=== PATIENT | male | born 1995 | race Caucasian/White ===

== ENCOUNTER 2017-07-29 17:41 | Emergency (ER) | payer OTHER ==
[~2017-07-29] VITALS: Ht 180.3 cm; Wt 83.9 kg
--- OUTSIDE RECORDS SUMMARY | 2017-07-29 17:46 | XMS | Clinical Summary ---
Demographics + + + | Address | [address] | | | [place] [address] | + + + | Home Phone | | + + + | Preferred Language | Unknown | + + + | Marital Status | Single | + + + | Islam Affiliation | Unknown | + + + | Race | Unknown | + + + | Ethnic Group | Unknown | + + + Author + + + | Author | [facility] | | | and [place] | + + + | Organization | [facility] | | | and [place] | + + + | Address | Unknown | + + + | Phone | Unavailable | + + + Support + + + + + | Name | Relationship | Address | Phone | + + + + + | Cuong Britt | ECON | [address] | | | | | [place] [address] | | + + + + + | Avril Muniz | ECON | [address] | | | | | [place] [address] | | + + + + + Care Team Providers + +------+ + | Care Foreign Student Adviser Teacher Name | Role | Phone | + +------+ + | Eloise Cummings NP | PP | Unavailable | + +------+ + Allergies + + + + + + | Active Allergy | Reactions | Severity | Noted | Comments | | | | | Date | | + + + + + + | Codeine | Hives | Medium | 01/08/20 | | | | | | 14 | | + + + + + + Current Medications + + +-------+---------+------+------+-------+ | Prescription | Sig. | Disp. | Refills | Star | End | Statu | | | | | | t | Date | s | | | | | | Date | | | + + +-------+---------+------+------+-------+ | ALBUTEROL SULFATE | Inhale into the | | | | | Activ | | HFA IN | lungs. | | | | | e | + + +-------+---------+------+------+-------+ Active Problems Not on file Social History + +--------+ +--------+------+ | Tobacco Use | Types | Packs/Day | Years | Date | | | | | Used | | + +--------+ +--------+------+ | Current Every Day | Cigars | | | | | Smoker | | | | | + +--------+ +--------+------+ + +---+---+---+ | Smokeless Tobacco: | | | | | Never Used | | | | + +---+---+---+ + + +---------+ + | Alcohol Use | Drinks/We | oz/Week | Comments | | | ek | | | + + +---------+ + | No | | | | + + +---------+ + + + + | Sex Assigned at | Date Recorded | | | | + + + | Not on file | | + + + Last Filed Vital Signs + + + + | Vital Sign | Reading | Time Taken | + + + + | Blood Pressure | 134/70 | 01/07/2014905 PDT | + + + + | Pulse | 71 | 01/07/2014905 PDT | + + + + | Temperature | 36.8 C (98.3 F) | 01/07/2014905 PDT | + + + + | Respiratory Rate | 13 | 01/07/2014905 PDT | + + + + | Oxygen Saturation | 98% | 01/07/2014905 PDT | + + + + | Inhaled Oxygen | - | - | | Concentration | | | + + + + | Weight | 115 kg (253 lb 8.5 | 01/07/2014905 PDT | | | oz) | | + + + + | Height | 177.8 cm (5' 10") | 01/07/2014905 PDT | + + + + | Body Mass Index | 36.38 | 01/07/2014905 PDT | + + + + Plan of Treatment + + + + + | Health Maintenance | Due Date | Last Done | Comments | + + + + + | Vaccine: | | | | | Dtap/Tdap/Td (1 - | 5 | | | | Tdap) | | | | + + + + + | Vaccine: | | | | | Pneumococcal 19-64 | 5 | | | | (PPSV23 only) Medium | | | | | Risk (1 of 1 - | | | | | PPSV23) | | | | + + + + + | Vaccine: Influenza | | | | | (Season Ended) | 8 | | | + + + + + Results Not on filefrom Last 3 Months Insurance + +--------+ +--------+ +---------+ | Payer | Benefi | Subscriber | Type | Phone | Address | | | t Plan | ID | | | | | | / | | | | | | | Group | | | | | + +--------+ +--------+ +---------+ | [place]ICA[place] | MEDICA | xxxxxxxx | Medica | [phone] | | | [place] | | id | [id number] | | | | PLUS | | | | | + +--------+ +--------+ +---------+ | [employer] | MODA | xxxxxxxx | Medica | [phone] | | MEDICAID HMO | HEALTH | | id | [id number] | | | | MD[place] | | | | | | | [place] | | | | | + +--------+ +--------+ +---------+ + +--------+ +--------+ + + | Guarantor Name | Accoun | Relation to | Date | Phone | Billing Address | | | t Type | Patient | of | | | | | | | | | | + +--------+ +--------+ + + | TONO MUNIZ | Person | Self [birth year] | Home: | [address] | | [place] | al/Fam | | 1995 | +- | [place] [address] | | | darian | | | [phone] | | + +--------+ +--------+ + + | ALEE MUNIZ | Person | Mother | [birth year] | Home: | [address] | | | al/Fam | | 1890 | +- | [place] [address] | | | darian | | | [phone] | | + +--------+ +--------+ + +
--- OUTSIDE RECORDS SUMMARY | 2017-07-29 17:46 | XMS | Clinical Summary ---
Demographics + + + | Address | [address] | | | [place] [address] | + + + | Home Phone | | + + + | Preferred Language | Unknown | + + + | Marital Status | Single | + + + | Church Affiliation | Unknown | + + + | Race | Unknown | + + + | Ethnic Group | Unknown | + + + Author + + + | Author | [facility] | | | and [place] | + + + | Organization | [facility] | | | and [place] | + + + | Address | Unknown | + + + | Phone | Unavailable | + + + Support + + + + + | Name | Relationship | Address | Phone | + + + + + | Cuong Britt | ECON | [address] | | | | | [place] [address] | | + + + + + | Avril Muniz | ECON | [address] | | | | | [place] [address] | | + + + + + Care Team Providers + +------+ + | Care Logistics Engineer Name | Role | Phone | + [...] | 1995 | +- | [place] [address] | | | darian | | | [phone] | | + +--------+ +--------+ + + | ALEE MUNIZ | Person | Mother | [birth year] | Home: | [address] | | | al/Fam | | 1890 | +- | [place] [address] | | | darian | | | [phone] | | + +--------+ +--------+ + +
[2017-07-29] MEDS ORDERED: IBUPROFEN600 MG PO (18:16)
[2017-07-29] MEDS ORDERED: CYCLOBENZAPRINE5 MG PO (18:16)
== END 2017-07-29 18:49 | disposition home or self-care (01) ==
LOC: ED 17:41
DX: R07.89 Other chest pain (principal); F17.200 Nicotine dependence, unspecified, uncomplicated; Z88.5 Allergy status to narcotic agent
CPT/HCPCS: 71046; 96372; 99283; J1885

== ENCOUNTER 2017-12-04 23:52 | Emergency (ER) | payer OTHER ==
[~2017-12-04] VITALS: Ht 180.3 cm; Wt 97.5 kg
[~2017-12-04 23:52] MED LIST: CYCLOBENZAPRINE5 MG PO; IBUPROFEN600 MG PO; VENTOLIN HFA18 GM INH
[2017-12-05] MEDS ORDERED: NORCO 5-325 TA1 EACH PO ×2 (09:19)
[2017-12-05] MEDS ORDERED: ADDERALL 15 MG15 MG PO ×2 (09:20)
== END 2017-12-05 03:36 | disposition home or self-care (01) ==
LOC: ED 23:52
DX: M65.9 Synovitis and tenosynovitis, unspecified (principal); S61.231D Puncture wound without foreign body of left index finger without damage to nail, subsequent encounter; J45.909 Unspecified asthma, uncomplicated; F17.200 Nicotine dependence, unspecified, uncomplicated; Z88.5 Allergy status to narcotic agent
CPT/HCPCS: 85025; 90471; 90715; 96365; 96366; 96375; 99283; J1170; J1200; J2405; J3370; J7030; J7060

== ENCOUNTER 2017-12-05 08:53 | Day surgery (SDC) | payer OTHER ==
[~2017-12-05] VITALS: Ht 180.3 cm; Wt 90.3 kg
[2017-12-05] MEDS ORDERED: NORCO 5-325 TA1 EACH PO ×2 (09:19)
[2017-12-05] MEDS ORDERED: ADDERALL 15 MG15 MG PO ×2 (09:20)
--- NOTE | 2017-12-05 13:01 | NUR ---
12/05/17 Cindi1 Ann [place] 1249 PT ARRIVED TO PACU RESP EVEN AND UNLABROED, ON 6L VIA MASK. PT NONAROUSABLE TO STIMULI. 1255 PT WOKE TO TACTILE STIMULI AND DENIES PAIN. PT UNABLE TO OPEN EYES, PT RIGHT BACK TO SLEEP.
--- NOTE | 2017-12-05 13:33 | NUR ---
ICED WATER GIVEN. PT TAKES SIPS OF WATER AND TOLERATES THAT WELL. CALL LIGHT W/IN REACH.
--- NOTE | 2017-12-05 14:18 | NUR ---
PATIENT AWAKE IN BED, USING CELL PHONE. PATIENT DENIES PAIN OR NAUSEA. PATIENT REFUSES ANY FOOD EXCEPT FOR YOGURT, INDICATES THAT "NOTHING AGREES WITH ME SINCE I HAD PANCREATITIS." PATIENT DENIES URGE TO VOID.
--- NOTE | 2017-12-05 15:48 | NUR ---
PT UP TO BR W/RN STANDBY. PT AMBULATES WELL AND DENIES DIZZINESS. PT VOIDS AND REQ DC HOME. PT IS TEXTING HIS RIDE. DC INSTRUCTIONS GIVEN AND PT VERBALIZES UNDERSTANDING.
--- NOTE | 2017-12-05 16:07 | NUR ---
PT DRESSES SELF AND TRANSFERS SELF TO AND THEN PERSONAL VEHICLE AND MANAGES THAT ALL WELL.
--- NOTE | 2017-12-06 09:30 | NUR ---
PT SITTING UPRIGHT IN BED, HOLDING FINGER AND GRIMACING IN PAIN. ALL HE WOULD SAY IS IT REALLY HURTS AND WASN'T HARDLY AWARE OF MY PRESENCE. PASSED PT'S PAIN ISSUE TO RN, WILL FOLLOW NEEDED
--- NOTE | 2017-12-07 07:04 | OR ---
[facility] [address], [place] [address] Signed DATE OF OPERATION: 12/05/2017 SURGEON: Cesar Mcdowell MD PREOPERATIVE DIAGNOSIS: Flexor tenosynovitis with abscess in the distal pulp of the left index finger. POSTOPERATIVE DIAGNOSIS: Flexor tenosynovitis with abscess in the distal pulp of the left index finger. PROCEDURE: Incision and drainage. ANESTHESIA: General. SPECIMENS AND COMPLICATIONS: There were no complications. We did take robotic and anaerobic cultures. WHAT WAS DONE: The patient was taken to the operating room. After anesthesia was induced and airway secured, the left upper extremity was positioned, prepped and draped in a routine sterile fashion. We elevated the hand for about 2 minutes and pneumatic tourniquet about the upper arm was inflated to 250 mmHg pressure. A wound. We then made a modified Samina incision over the middle phalanx of the left index finger. Skin was divided sharply. Subcutaneous tissue was bluntly spread. A curved mosquito was then used to tunnel slightly distally where we entered a large abscess over the distal phalanx. This was evacuated with blunt dissection and copious irrigation. We then made a longitudinal split in the flexor tendon sheath and a moderate amount of purulent material came out. We then made a 2nd incision proximally near the MCP flexion crease over the A1 godfrey. Skin was divided sharply. Subcutaneous tissue was bluntly spread. A self-retaining retractor was placed and we opened the flexor tendon sheath over the A1 godfrey and again a moderate amount of the yellowish murky fluid emerged. We then placed an 18-gauge Angiocath in the flexor tendon sheath and copiously irrigated. Both proximally and distally until there was no more purulent or cloudy material. Both wounds were then gently irrigated themselves and closed with interrupted sutures of 4-0 nylon. A sterile dressing was applied. The patient was awakened and taken to the recovery room, where he arrived in stable condition. Counts were correct and antibiotic protocols were followed. Electronically Signed By: CESAR MCDOWELL MD 12/07/17 0704 PATIENT NAME: VENKATESH CARRERA OPERATIVE REPORT DATE OF : 89 REPORT #: [id number] PHYSICIAN: CESAR MCDOWELL MD PCP: JEREMI COBIAN PAC REPORT IS CONFIDENTIAL AND NOT TO BE RELEASED WITHOUT AUTHORIZATION [address] [address] Signed Cesar Mcdowell MD WFB/MODL /[id number] Copies: ~ Electronically Signed By: CESAR MCDOWELL MD 12/07/17 0704 PATIENT NAME: VENKATESH CARRERA OPERATIVE REPORT DATE OF : [birth year] REPORT #: [id number] PHYSICIAN: CESAR MCDOWELL MD PCP: JEREMI OCBIAN PAC REPORT IS CONFIDENTIAL AND NOT TO BE RELEASED WITHOUT AUTHORIZATION
== END 2017-12-05 16:05 | disposition home or self-care (01) ==
LOC: DS 08:53 → OPS 08:53 → DS 11:30 → OPS 16:05
PROVIDERS: Orthopaedic Surgery
PROC: 0L980ZZ Drainage of Left Hand Tendon, Open Approach (ICD-10-PCS; principal; 2017-12-05 11:30)
DX: M65.842 Other synovitis and tenosynovitis, left hand (principal); L02.512 Cutaneous abscess of left hand
CPT/HCPCS: 00400; 64417; 76942; J0690; J1100; J2250; J2405; J2704; J2765; J2795; J3010; J7120

== ENCOUNTER 2020-10-08 20:33 | Emergency (ER) | payer OTHER ==
[~2020-10-08] VITALS: Ht 180.3 cm; Wt 90.3 kg
[~2020-10-08 20:33] MED LIST changes: +ADDERALL 15 MG15 MG PO; +NORCO 5-325 TA1 EACH PO
[2020-10-08] MEDS ORDERED: PROVENTIL HFA6.7 GM INH (22:35)
== END 2020-10-08 22:45 | disposition home or self-care (01) ==
LOC: ED 20:33
DX: R05 Cough (principal); F17.200 Nicotine dependence, unspecified, uncomplicated; Z88.5 Allergy status to narcotic agent
CPT/HCPCS: 71046; 99283-25

== ENCOUNTER 2024-02-03 08:04 | Emergency (ER) | payer OTHER ==
[~2024-02-03] VITALS: Ht 180.3 cm; Wt 105.1 kg
[~2024-02-03 08:04] MED LIST changes: +PROVENTIL HFA6.7 GM INH
[2024-02-03 09:25] LABS: INFLUENZA B NAA NEGATIVE (NEGATIVE); RESPIRATORY SYNCYTIAL VIR NAA NEGATIVE (NEGATIVE)
[2024-02-03] MEDS ORDERED: VENTOLIN HFA18 GM INH (09:27)
[2024-02-03 09:33] VITALS: BP 132/77
== END 2024-02-03 09:33 | disposition home or self-care (01) ==
LOC: ED 08:04
PROVIDERS: Emergency Medicine
DX: J06.9 Acute upper respiratory infection, unspecified (principal); J45.909 Unspecified asthma, uncomplicated; F17.200 Nicotine dependence, unspecified, uncomplicated; Z88.5 Allergy status to narcotic agent
CPT/HCPCS: 71046; 87502; 99283-25; U0002

== ENCOUNTER 2024-04-05 22:08 | Emergency (ER) | payer OTHER ==
[~2024-04-05] VITALS: Ht 180.3 cm; Wt 100.7 kg
[2024-04-05] MEDS ORDERED: AMOXICILLIN/CLAVULANATE K 875 MG HOME.PACK PO ONE (23:00)
[2024-04-05] MEDS ORDERED: IBUPROFEN 800 MG TAB PO ONE (23:00)
[2024-04-05] MEDS ORDERED: AMOX TR-K CLV1 EAC1 PO (23:07)
[2024-04-05 23:17] VITALS: BP 146/75
== END 2024-04-05 23:17 | disposition home or self-care (01) ==
LOC: ED 22:08
DX: K02.7 Dental root caries (principal); K04.7 Periapical abscess without sinus; F17.200 Nicotine dependence, unspecified, uncomplicated; Z88.5 Allergy status to narcotic agent
CPT/HCPCS: 99282; A9270

== ENCOUNTER 2024-04-13 10:30 | Emergency (ER) | payer OTHER ==
[~2024-04-13] VITALS: Ht 180.3 cm; Wt 99.8 kg
[~2024-04-13 10:30] MED LIST changes: +AMOX TR-K CLV1 EAC1 PO
--- OUTSIDE RECORDS SUMMARY | 2024-04-13 10:37 | XMS ---
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 Events No recent Security Events currently on file CRITERIA MET - [facility] - 2 Visits in 30 Days CARE PROVIDERS JAZ CORRAL Community Health Worker 01/19/2022-Current PHONE: [phone] JEREMI COBIAN 12/05/2017-Current PHONE: [phone] -[facility]+ Dentist: Wall Washer [facility] PHONE: [phone] -Bhavya- Dentist: Wall Was[facility] PHONE: [phone] -David- Dentist: Wall Was[facility] PHONE: [phone] [facility]Center: [facility] FAMILY PHONE: [phone] Martínez has no Care Guidelines for this patient. [place] VISIT COUNT (12 MO.) [address] [facility] [address] [place] TOTAL 3 NOTE: Visits indicate total known visits. ED/UCC VISIT TRACKING (12 MO.) 04/13/2024 10:31 [facility] [place] TYPE: Emergency COMPLAINT: - TOOTH PAIN 04/05/2024 22:08 [facility] [place] TYPE: Emergency COMPLAINT: - MOUTH PAIN DIAGNOSES: - Allergy status to narcotic agent - Dental root caries - Nicotine dependence, unspecified, uncomplicated - Other specified disorders of teeth and supporting structures - Periapical abscess without sinus 02/03/2024 08:04 [facility] [place] TYPE: Emergency COMPLAINT: - COLD SYMPTOMS DIAGNOSES: - Acute upper respiratory infection, unspecified - Allergy status to narcotic agent - Cough, unspecified - Nicotine dependence, unspecified, uncomplicated - Unspecified asthma, uncomplicated INPATIENT VISIT TRACKING (12 MO.) No inpatient visits to display in this time frame [email or web address]
[2024-04-13] MEDS ORDERED: PENICILLIN V POTASSIUM 500 MG TAB PO ONE (11:15)
[2024-04-13] MEDS ORDERED: VENTOLIN HFA18 GM INH (11:18)
[2024-04-13] MEDS ORDERED: PENICILLIN V P500 MG PO (11:22)
[2024-04-13] MEDS ORDERED: HYDROCODON-ACE1 EA11 PO (11:25)
[2024-04-13 11:34] VITALS: BP 161/95
== END 2024-04-13 11:34 | disposition home or self-care (01) ==
LOC: ED 10:30
DX: K08.89 Other specified disorders of teeth and supporting structures (principal); J45.909 Unspecified asthma, uncomplicated; F17.200 Nicotine dependence, unspecified, uncomplicated; Z88.5 Allergy status to narcotic agent; Z79.899 Other long term (current) drug therapy
CPT/HCPCS: 99282

== ENCOUNTER 2024-04-14 05:43 | Emergency (ER) | payer OTHER ==
[~2024-04-14] VITALS: Ht 180.3 cm; Wt 100.2 kg
[~2024-04-14 05:43] MED LIST changes: +HYDROCODON-ACE1 EA11 PO; +PENICILLIN V P500 MG PO
--- OUTSIDE RECORDS SUMMARY | 2024-04-14 05:50 | XMS ---
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 - 2 Visits in 30 Days CARE PROVIDERS JAZ CORRAL Community Health Worker 01/19/2022-Current PHONE: [phone] JEREMI COBIAN 12/05/2017-Current PHONE: [phone] -[facility]+ Dentist: Rfid Engineer [facility] PHONE: [phone] -Bhavya- Dentist: Rfid Engineer [facility] PHONE: [phone] -David- Dentist: Rfid Engineer [facility] PHONE: [phone] [facility]/Center: [facility] FAMILY PHONE: [phone] Martínez has no Care Guidelines for this patient. [place] VISIT COUNT (12 MO.) [address] [facility] [address] . TOTAL 4 NOTE: Visits indicate total known visits. ED/UCC VISIT TRACKING (12 MO.) 04/14/2024 05:44 [facility] [place] TYPE: Emergency COMPLAINT: - TOOTH PAIN 04/13/2024 10:31 [facility] [place] TYPE: Emergency [...] visits to display in this time frame [id number]
[2024-04-14 06:14] VITALS: BP 148/98
== END 2024-04-14 06:13 | disposition home or self-care (01) ==
LOC: ED 05:43
DX: K02.9 Dental caries, unspecified (principal); J45.909 Unspecified asthma, uncomplicated; F17.200 Nicotine dependence, unspecified, uncomplicated; Z88.5 Allergy status to narcotic agent; Z79.899 Other long term (current) drug therapy
CPT/HCPCS: 99282

== ENCOUNTER 2024-05-02 21:40 | Emergency (ER) | payer OTHER ==
[~2024-05-02] VITALS: Ht 180.3 cm; Wt 81.6 kg
--- OUTSIDE RECORDS SUMMARY | 2024-05-02 21:46 | XMS ---
PreManage Notification: VENKATESH CARRERA Security Senior Bookkeeper Events No recent Security Events currently on file CRITERIA MET - [facility] - 2 Visits in 30 Days CARE PROVIDERS JAZ CORRAL Community Health Worker 01/19/2022-Current PHONE: [phone] JEREMI COBIAN 12/05/2017-Current PHONE: [phone] -[facility]+ Dentist: Dispatcher Radioactive Waste Disposal [facility] PHONE: [phone] -Bhavya- Dentist: Dispatcher Radioactive Waste Disposal [facility] PHONE: [phone] -David- Dentist: Dispatcher Radioactive Waste Disposal [facility] PHONE: [phone] [facility]/Center: [facility] FAMILY PHONE: [phone] Martínez has no Care Guidelines for this patient. [place] VISIT COUNT (12 MO.) [address] [facility] [address] [place] TOTAL 5 NOTE: Visits indicate total known visits. ED/UCC VISIT TRACKING (12 MO.) 05/02/2024 21:40 [facility] [place] TYPE: Emergency COMPLAINT: - DENTAL PAIN 04/14/2024 05:44 [facility] [place] TYPE: Emergency COMPLAINT: - TOOTH PAIN DIAGNOSES: - Allergy status to narcotic agent - Dental caries, unspecified - Nicotine dependence, unspecified, uncomplicated - Other termite treater helper (current) drug therapy - Other specified disorders of teeth and supporting structures - Unspecified asthma, uncomplicated 04/13/2024 10:31 [facility] [place] TYPE: Emergency COMPLAINT: - TOOTH PAIN DIAGNOSES: - Allergy status to narcotic agent - Nicotine dependence, unspecified, uncomplicated - Other assisted (current) drug therapy - Other specified disorders of teeth and supporting structures - Unspecified asthma, uncomplicated 04/05/2024 22:08 [facility] [place] TYPE: Emergency [...] visits to display in this time frame [email or web address]
[2024-05-02] MEDS ORDERED: CEPHALEXIN500 M1 PO (22:16)
[2024-05-02 22:30] VITALS: BP 133/76
[2024-05-02] MEDS ORDERED: CEPHALEXIN MONOHYDRATE 500 MG HOME.PACK PO ONE (22:30)
[2024-05-02] MEDS ORDERED: TRAMADOL HCL 50 MG HOME.PACK PO ONE (22:30)
== END 2024-05-02 22:30 | disposition home or self-care (01) ==
LOC: ED 21:40
DX: K02.9 Dental caries, unspecified (principal); K04.7 Periapical abscess without sinus; J45.909 Unspecified asthma, uncomplicated; F17.200 Nicotine dependence, unspecified, uncomplicated; Z88.5 Allergy status to narcotic agent; Z79.899 Other long term (current) drug therapy
CPT/HCPCS: 99282; A9270

== ENCOUNTER 2024-06-08 17:29 | Emergency (ER) | payer OTHER ==
[~2024-06-08] VITALS: Ht 180.3 cm; Wt 102.5 kg
[~2024-06-08 17:29] MED LIST changes: +CEPHALEXIN500 M1 PO
[2024-06-08 17:53] LABS: BILIRUBIN, URINE NEGATIVE (negative); BLOOD/HGB, URINE LARGE (Negative); KETONE, URINE NEGATIVE (Negative); LEUK ESTERASE, URINE MODERATE (negative); NITRITE, URINE POSITIVE (negative)
[2024-06-08 17:58] LABS: EPITHELIAL CELLS, URINE SQUAMOUS 1+ /lpf (0-1+)
[2024-06-08 17:59] LABS: CRYSTALS, URINE NONE SEEN (0-1+); WHITE BLOOD CELLS, URINE 41-50 /HPF (0-5)
[2024-06-08 18:00] LABS: BACTERIA, URINE 2+ /hpf (negative); CASTS, URINE NONE SEEN \\lpf; COLLECTION TYPE, URINE CLEAN CATCH; REFLEX CULTURE, URINE Yes (No)
[2024-06-08] MEDS ORDERED: BACTRIM DS TAB1 EACH PO (18:37)
[2024-06-08 18:40] VITALS: BP 130/79
--- OUTSIDE RECORDS SUMMARY | 2024-06-08 18:44 | XMS ---
PreManage Notification: VENKATESH CARRERA Security Property Insurance Claims Examiner Events No recent Security Events currently on file CRITERIA MET - 6 ED Visits in 6 Months CARE PROVIDERS JAZ CORRAL Community Health Worker 01/19/2022-Current PHONE: [phone] JEREMI COBIAN Physician 12/05/2017-Current PHONE: [phone] -[facility]+ Dentist: Dock Builder [place] PHONE: [phone] Bhavya Crow- Dentist: Dock Builder [facility] PHONE: [phone] -David- Dentist: Dock Builder [facility] PHONE: [phone] [facility]/Center: [facility] FAMILY PHONE: [phone] Martínez has no Care Guidelines for this patient. [place] VISIT COUNT (12 MO.) [address] [facility] [address] . TOTAL 6 NOTE: Visits indicate total known visits. ED/UCC VISIT TRACKING (12 MO.) 06/08/2024 17:30 [facility] [place] TYPE: Emergency COMPLAINT: - POSS UTI 05/02/2024 21:40 [facility] [place] TYPE: Emergency COMPLAINT: - DENTAL PAIN DIAGNOSES: - Allergy status to narcotic agent - Dental caries, unspecified - Nicotine dependence, unspecified, uncomplicated - Other intermediate designer (current) drug therapy - Other specified disorders of teeth and supporting structures - Periapical abscess without sinus - Unspecified asthma, uncomplicated 04/14/2024 05:44 [facility] [place] TYPE: Emergency COMPLAINT: - TOOTH PAIN DIAGNOSES: - Allergy status to narcotic agent - Dental caries, unspecified - Nicotine dependence, unspecified, uncomplicated - Other intermediate designer (current) drug therapy - Other specified disorders of teeth and supporting structures - Unspecified asthma, uncomplicated 04/13/2024 10:31 [facility] [place] TYPE: Emergency COMPLAINT: - TOOTH PAIN DIAGNOSES: - Allergy status to narcotic agent - Nicotine dependence, unspecified, uncomplicated - Other chcf (current) drug therapy - Other specified disorders [...] visits to display in this time frame [email or web address]
[2024-06-08] MEDS ORDERED: TRIMETHOPRIM/SULFAMETHOXAZOLE 1 EA TAB PO ONE (18:45)
[2024-06-08 19:25] LABS: N. GONORRRHOEAE BY PCR NOT DETECTED (NOT DETECT)
== END 2024-06-08 18:00 | disposition home or self-care (01) ==
LOC: ED 17:29
PROVIDERS: Emergency Medicine
DX: N39.0 Urinary tract infection, site not specified (principal); J45.909 Unspecified asthma, uncomplicated; F17.200 Nicotine dependence, unspecified, uncomplicated; Z88.5 Allergy status to narcotic agent; Z79.899 Other long term (current) drug therapy
CPT/HCPCS: 81001; 87088; 99283

== ENCOUNTER 2024-11-21 10:40 | Emergency (ER) | payer OTHER ==
[~2024-11-21] VITALS: Ht 180.3 cm; Wt 97.2 kg
[~2024-11-21 10:40] MED LIST changes: +BACTRIM DS TAB1 EACH PO
[2024-11-21 11:45] LABS: BASOPHILS 0.3 % (0.2-1.2); EOSINOPHILS 0.1 % (0.8-7.0); LYMPHOCYTES 10.0 % (21.8-53.1); MCH 28.7 PG (25.7-32.2); MCHC 34.2 g/dL (32.3-36.5); MCV 84.0 fL (79.0-92.2); MONOCYTES 9.6 % (5.3-12.2); NEUTROPHILS 79.6 % (34.0-67.9); RBC 5.81 M/uL (4.63-6.08)
[2024-11-21] MEDS ORDERED: ONDANSETRON 4 MG TAB ODT SL ONE (11:45)
[2024-11-21] MEDS ORDERED: SODIUM CHLORIDE 0.9% 1,000 ML IV ONE (11:45)
[2024-11-21] MEDS ORDERED: HYDROCODONE/ACETA 5/325 TAB PO ONE (11:45)
[2024-11-21 11:58] LABS: BLOOD/HGB, URINE LARGE (Negative); KETONE, URINE SMALL (Negative); LEUK ESTERASE, URINE LARGE (negative); NITRITE, URINE POSITIVE (negative)
[2024-11-21] MEDS ORDERED: MORPHINE SULFATE 4 MG/ML VIAL IV PRN (12:00)
[2024-11-21] MEDS ORDERED: VANCOMYCIN HCL 2,500 MG in DEXTROSE 5% 500 ML IV ONE (12:00)
[2024-11-21] MEDS ORDERED: SODIUM CHLORIDE 0.9% 1,000 ML IV PRN (12:00)
[2024-11-21] MEDS ORDERED: PIPERACILLIN/TAZOBACTAM 4.5 GM in SODIUM CHLORIDE 0.9% 100 ML IV ONE (12:00)
[2024-11-21 12:01] LABS: ALT (SGPT) 23.0 U/L (14-59); AST (SGOT) 14.0 U/L (15-37); GLOMERULAR FILTRATION RATE,EST 74.0 mL/min (>60); PROTEIN, TOTAL 9.0 g/dL (6.4-8.2); UREA NITROGEN 15.0 mg/dL (7-18)
[2024-11-21 12:07] LABS: BACTERIA, URINE 1+ /hpf (negative); CASTS, URINE NONE SEEN \\lpf; CRYSTALS, URINE NONE SEEN (0-1+); EPITHELIAL CELLS, URINE 0 /lpf (0-1+); REFLEX CULTURE, URINE Yes (No)
[2024-11-21] MEDS ORDERED: fentaNYL citrate 100 MCG/2 ML VIAL IV PRN (12:15)
[2024-11-21 12:28] LABS: LACTIC ACID, BLOOD 1.8 mmol/L (0.4-2.0)
[2024-11-21] MEDS ORDERED: ONDANSETRON ODT4 MG PO (16:07)
[2024-11-21] MEDS ORDERED: HYDROCODON-ACE1 EA10 PO (16:07)
[2024-11-21] MEDS ORDERED: CEPHALEXIN500 MG PO (16:07)
[2024-11-21 17:22] VITALS: BP 129/66
--- NOTE | 2024-11-27 00:30 | NUR ---
RECEIVED CALL FROM LAB WITH A REPORT OF POSITIVE BLOOD CULTURE IN THE ANAEROBIC BOTTLE FOR GRAM POSITIVE RODS. UPDATED.
== END 2024-11-21 17:30 | disposition home or self-care (01) ==
LOC: ED 10:40
PROVIDERS: Emergency Medicine
DX: M54.50 Low back pain, unspecified (principal); M54.6 Pain in thoracic spine; K80.20 Calculus of gallbladder without cholecystitis without obstruction; J45.909 Unspecified asthma, uncomplicated; F17.200 Nicotine dependence, unspecified, uncomplicated; Z88.5 Allergy status to narcotic agent
CPT/HCPCS: 36415; 72157; 72158; 74176; 80053; 81001; 83605; 85025; 86141; 87040; 87077; 87088; 87186; 96365; 96366; 96368; 99284-25; A9270; A9573; J2543; J3370; J7030; J7060

== ENCOUNTER 2025-01-25 00:04 | Emergency (ER) | payer OTHER ==
[~2025-01-25] VITALS: Ht 180.3 cm; Wt 97.2 kg
[~2025-01-25 00:04] MED LIST changes: +CEPHALEXIN500 MG PO; +HYDROCODON-ACE1 EA10 PO; +ONDANSETRON ODT4 MG PO
[2025-01-25] MEDS ORDERED: OXYCODONE/APAP 5/325 TAB PO ONE (00:15)
[2025-01-25] MEDS ORDERED: HYDROCODONE BIT/ACETAMINOPHEN 5/325 MG 1 TAB HOME.PACK PO ONE (01:30)
[2025-01-25] MEDS ORDERED: HYDROCODON-ACE1 EA10 PO (01:32)
[2025-01-25 01:55] VITALS: BP 130/79
== END 2025-01-25 01:55 | disposition home or self-care (01) ==
LOC: ED 00:04
DX: S62.002A Unspecified fracture of navicular [scaphoid] bone of left wrist, initial encounter for closed fracture (principal); V29.99XA Rider (driver) (passenger) of other motorcycle injured in unspecified traffic accident, initial encounter; J45.909 Unspecified asthma, uncomplicated; F17.200 Nicotine dependence, unspecified, uncomplicated; Z88.5 Allergy status to narcotic agent; Z79.899 Other long term (current) drug therapy
CPT/HCPCS: 73110; 99283; A9270

== ENCOUNTER 2025-02-02 23:13 | Emergency (ER) | payer OTHER ==
[~2025-02-02] VITALS: Ht 180.3 cm; Wt 102.6 kg
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
[2025-02-03 01:43] LABS: BASOPHILS 0.3 % (0.2-1.2); EOSINOPHILS 1.4 % (0.8-7.0); LYMPHOCYTES 15.7 % (21.8-53.1); MCH 28.9 PG (25.7-32.2); MCHC 34.0 g/dL (32.3-36.5); MCV 85.1 fL (79.0-92.2); MONOCYTES 5.8 % (5.3-12.2); NEUTROPHILS 76.6 % (34.0-67.9); RBC 5.57 M/uL (4.63-6.08)
[2025-02-03 01:57] LABS: ALCOHOL, MEDICAL <3 ng/dL (<3); ALT (SGPT) 37 U/L (14-59); AST (SGOT) 16 U/L (15-37); GLOMERULAR FILTRATION RATE,EST 104 mL/min (>60); PROTEIN, TOTAL 8.5 g/dL (6.4-8.2); UREA NITROGEN 17 mg/dL (7-18)
[2025-02-03] MEDS ORDERED: HYDROCODONE/ACETA 5/325 TAB PO ONE (02:30)
[2025-02-03] MEDS ORDERED: HYDROCODON-ACE1 EA10 PO (02:31)
[2025-02-03] MEDS ORDERED: HYDROCODONE BIT/ACETAMINOPHEN 5/325 MG 1 TAB HOME.PACK PO ONE (02:45)
[2025-02-03 03:42] VITALS: BP 162/99
== END 2025-02-03 03:52 | disposition home or self-care (01) ==
LOC: ED 23:13
PROVIDERS: Internal Medicine
DX: S02.32XA Fracture of orbital floor, left side, initial encounter for closed fracture (principal); S02.832A Fracture of medial orbital wall, left side, initial encounter for closed fracture; S02.122A Fracture of orbital roof, left side, initial encounter for closed fracture; S02.842A Fracture of lateral orbital wall, left side, initial encounter for closed fracture; V29.99XA Rider (driver) (passenger) of other motorcycle injured in unspecified traffic accident, initial encounter; J45.909 Unspecified asthma, uncomplicated; F17.200 Nicotine dependence, unspecified, uncomplicated; Z88.5 Allergy status to narcotic agent
CPT/HCPCS: 36415; 70450; 70486; 73110; 80053; 80307; 85025; 86850; 86900; 86901; 99285-25; A9270; G0480